=== PATIENT | female | born 1980 | race African-American/Black ===

== ENCOUNTER 2023-04-26 11:33 | Emergency (ER) | payer OTHER ==
[2023-04-26] MEDS ORDERED: KETOROLAC 15 MG/ML 1 ML VIAL IM STA (11:46)
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
[2023-04-26 12:38] VITALS: RESP 18
--- NOTE | 2023-04-26 13:51 | XR ---
EXAMINATION TYPE: XR tibia fibula RT, XR knee complete RT DATE OF EXAM: 04/26/2023 1:18 PM CLINICAL INDICATION:Female, 42 years old with history of fall; [facility] COMPARISON: None TECHNIQUE: XR tibia fibula RT, XR knee complete RT; examined in AP and lateral projections. Addition al oblique view of the knee. FINDINGS: Fixation hardware in the tibia compatible with prior fracture of the distal medial malleolu s. Distal fibular fracture with fixation hardware is also present. Liver appears intact. Proximal fib ular fracture with good osseous union is present. There is prior ACL repair changes. Large bony overh anging noted on the medial aspect of the knee. There is no evidence of for acute fracture. IMPRESSION: Sequela prior injuries and surgery. No evidence for acute fracture.
[2023-04-26 14:36] VITALS: BP 128/89; PULSE 90; TEMP 98.4
== END 2023-04-26 14:18 | disposition home or self-care (01) ==
LOC: EC 11:33
DX: S83.91XA Sprain of unspecified site of right knee, initial encounter (principal); W01.0XXA Fall on same level from slipping, tripping and stumbling without subsequent striking against object, initial encounter
CPT/HCPCS: 99283; 96372; 73590; 73562; J1885